=== PATIENT | male | born 1955 | race Caucasian/White ===

== ENCOUNTER 2024-03-16 05:09 | Emergency (ER) | payer OTHER, MEDICAID ==
[~2024-03-16] VITALS: Ht 165.1 cm; Wt 76.2 kg
--- NOTE | 2024-03-16 05:14 | NUR ---
PT AMBULATED TO BED 09
[2024-03-16 05:20] VITALS: BP 153/104; PULSE 92; RESP 16; TEMP 98.3; O2SAT 98
[2024-03-16 05:25] VITALS: BP 153/104; PULSE 89; RESP 16; O2SAT 100
--- NOTE | 2024-03-16 05:28 | NUR ---
68YR OLD MALE BIB C/O BACK PAIN XCHRONIC. PT STATES PAIN IS CHRONIC [id number]. 04/25 NON RADIATING . DENIES ANY RECENT TRAUMA OR INJURY. DENIES SURGERY TO LUMBAR OR CERVICAL. A/OX4 AT BEDSIDE NKDA DM
[2024-03-16] MEDS: KETOROLAC 30 MG/ML VIAL IM ONE (05:53)
[2024-03-16] MEDS: LIDOCAINE 5% 1 EA PATCH TP ONE (05:54)
[2024-03-16] MEDS: MORPHINE SULFATE 4 MG/ML SYR IM ONE (06:51)
--- NOTE | 2024-03-16 06:52 | NUR ---
Written and verbal after care instructions given and explained. Patient verbalized understanding. Ambulatory with steady gait. All questions addressed prior to discharge. Advised to follow up with PMD.
== END 2024-03-16 06:52 | disposition home or self-care (01) ==
LOC: MED 05:09
DX: G89.29 Other chronic pain (principal); M54.50 Low back pain, unspecified; E11.9 Type 2 diabetes mellitus without complications; Z98.890 Other specified postprocedural states
CPT/HCPCS: 96372; 99284; J1885; J2270